=== PATIENT | female | born 1990 ===

== ENCOUNTER → 2020-11-05 | Outpatient (CLI) | payer OTHER ==
[~2020-11-05] MED LIST: NONE PER PT
== END | disposition home or self-care (01) ==
LOC: STAR 12:38
PROVIDERS: ATTEND Otolaryngology
DX: Z20.822 Contact with and (suspected) exposure to COVID-19 (principal); J03.01 Acute recurrent streptococcal tonsillitis; R06.83 Snoring
CPT/HCPCS: U0003

== ENCOUNTER 2020-11-11 06:36 | Inpatient (IN) | payer OTHER ==
[~2020-11-11] VITALS: Ht 165.1 cm; Wt 72.9 kg
[2020-11-11] MEDS ORDERED: LACTATED RINGERS 1,000 ML IV SCH (07:00)
[2020-11-11] MEDS ORDERED: CHLORHEXIDINE 15 ML UDC PO ONE (07:00)
[2020-11-11] MEDS ORDERED: NO MEDS PER PT (07:01)
[2020-11-11 07:07] LABS: HCG UR SG 1.029 (1.003-1.030)
[2020-11-11 07:14] VITALS: BP 108/75
[2020-11-11] MEDS ORDERED: FENTANYL PF 100 MCG/2ML ONE (07:36)
[2020-11-11] MEDS ORDERED: MIDAZOLAM 1 MG/ML, 2ML ONE (07:36)
[2020-11-11] MEDS ORDERED: METOCLOPRAMIDE 5 MG/ML, 2ML IVPush PRN (08:00)
[2020-11-11] MEDS ORDERED: ONDANSETRON 2MG/ML, 2ML IVPush PRN (08:00)
[2020-11-11] MEDS ORDERED: LABETALOL 5MG/ML, 20ML IV PRN (08:00)
[2020-11-11] MEDS ORDERED: hydrALAzine 20 MG/ML, 1ML IV PRN (08:00)
[2020-11-11] MEDS ORDERED: HYDROmorphone 1 MG/ML, 1ML INJ IVPush PRN (08:00)
[2020-11-11] MEDS ORDERED: FENTANYL PF 100 MCG/2ML IV PRN (08:00)
[2020-11-11] MEDS ORDERED: EPHEDRINE 50 MG/ML, 1ML IVPush PRN (08:00)
[2020-11-11] MEDS ORDERED: HALOPERIDOL 5 MG/ML IV PRN (08:00)
[2020-11-11] MEDS ORDERED: METOPROLOL 1 MG/ML, 5ML IV PRN (08:00)
[2020-11-11] MEDS ORDERED: MEPERIDINE/PF 25MG/0.5ML IVPush PRN (08:00)
[2020-11-11] MEDS ORDERED: DIPHENHYDRAMINE 50 MG/ML, 1ML IVPush PRN (08:00)
[2020-11-11] MEDS ORDERED: OXYcodone 5 MG/5 ML ORAL.SOL UDC PO PRN (08:00)
[2020-11-11] MEDS ORDERED: PROMETHAZINE 25 MG/ML, 1ML IVPush PRN (08:00)
[2020-11-11] MEDS ORDERED: ACETAMINOPHEN 325 MG TABLET PO PRN (08:00)
[2020-11-11] MEDS ORDERED: DIAZEPAM 5 MG/ML, 2ML IVPush PRN (08:00)
[2020-11-11] MEDS ORDERED: PROPOFOL 10 MG/ML, 20ML ONE (08:15)
[2020-11-11] MEDS ORDERED: ROCURONIUM 10 MG/ML,10ML ONE (08:15)
[2020-11-11] MEDS ORDERED: CEFAZOLIN 1,000 MG ONE (08:15)
[2020-11-11] MEDS ORDERED: ONDANSETRON 2MG/ML, 2ML ONE (08:15)
[2020-11-11] MEDS ORDERED: SUCCINYLCHOLINE 20 MG/ML, 10ML ONE (08:15)
[2020-11-11] MEDS ORDERED: DEXAMETHASONE 4 MG/ML, 1ML ONE (08:15)
[2020-11-11] MEDS ORDERED: HYDROmorphone 1 MG/ML, 1ML INJ ONE (08:30)
[2020-11-11] MEDS ORDERED: ACETAMINOPHEN 650 MG/20.3 ML UDC ONE (11:57)
[2020-11-11 15:30] VITALS: BP 105/71
[2020-11-11] MEDS ORDERED: ONDANSETRON 2MG/ML, 2ML IV PRN (16:30)
[2020-11-11] MEDS: ACETAMINOPHEN 325 MG TABLET PO SCH ×2 (16:37→22:57)
[2020-11-11] MEDS: OXYcodone IR 5MG TABLET PO PRN (16:37)
[2020-11-11] MEDS ORDERED: SENN-99 PO (17:41)
[2020-11-11] MEDS ORDERED: ACET325T26 PO (17:41)
[2020-11-11] MEDS ORDERED: OXYC5TAB98 PO (17:41)
[2020-11-11 19:25] VITALS: BP 91/50
[2020-11-11] MEDS: LACTATED RINGERS 1,000 ML IV SCH (19:41)
[2020-11-11 23:54] VITALS: BP 93/53
[2020-11-12 03:25] VITALS: BP 93/53
[2020-11-12] MEDS: ACETAMINOPHEN 325 MG TABLET PO SCH ×2 (04:30→10:48)
[2020-11-12] MEDS: OXYcodone IR 5MG TABLET PO PRN ×3 (05:02→13:55)
[2020-11-12] MEDS: LACTATED RINGERS 1,000 ML IV SCH (05:07)
[2020-11-12 07:03] VITALS: BP 91/56
[2020-11-12] MEDS ORDERED: LIDOCAINE 2% VISCOUS 15 ML UDC MM PRN (08:00)
[2020-11-12] MEDS ORDERED: LIDO15SO2 MM (08:16)
[2020-11-12 14:00] VITALS: BP 97/59
== END 2020-11-12 15:18 | disposition home or self-care (01) | DRG 144 ==
LOC: OUT 06:36 → 4NE 15:28 → ORIP 15:31 → OUT 17:09 → 4NE 18:02
PROVIDERS: ADMIT Otolaryngology; ATTEND Otolaryngology
PROC: 0CTPXZZ Resection of Tonsils, External Approach (ICD-10-PCS; principal; 2020-11-11 08:30)
DX: J03.01 Acute recurrent streptococcal tonsillitis (principal); J81.1 Chronic pulmonary edema; J35.01 Chronic tonsillitis; J38.5 Laryngeal spasm
CPT/HCPCS: 81025; 88304; G0378; J0690; J1100; J1170; J2250; J2405; J2704; J3010; J0330; J7120